=== PATIENT | female | born 1945 | race Caucasian/White ===

== ENCOUNTER → 2021-11-09 15:01 | Outpatient (CLI) | payer MEDICARE, SELFPAY ==
--- NOTE | 2021-11-09 15:09 | DI.RAD.S_ITS ---
PROCEDURE: XR ANKLE LT MIN 3V INDICATIONS: Pain in left ankle and joints of left foot TECHNIQUE: 3 views of the ankle were acquired. COMPARISON: None. FINDINGS: Bones: Acute oblique fracture through distal fibular shaft is seen with minimal dorsal and lateral displacement at fracture site. Ankle mortise is congruent. No dislocation. No other fracture is seen. Well-defined plantar calcaneal enthesophyte is noted. No suspicious bony lesions. Soft tissues: No tibiotalar joint effusion. Achilles tendon appears normal. IMPRESSION: Acute slightly displaced oblique fracture through distal fibular shaft. Dictated by: Emeterio Lane M.D. on 11/09/2021 at 15:44 Approved by: Emeterio Lane M.D. on 11/09/2021 at 15:49
== END ==
PROVIDERS: PCP Family Medicine; Referring Provider Family Medicine; Visit Provider Family Medicine
DX: S82.435A Nondisplaced oblique fracture of shaft of left fibula, initial encounter for closed fracture (principal); M25.572 Pain in left ankle and joints of left foot; X58.XXXA Exposure to other specified factors, initial encounter
CPT/HCPCS: 73610

== ENCOUNTER 2025-01-26 11:10 | Emergency (ER) | payer MEDICARE, SELFPAY ==
[2025-01-26] VITALS (15 sets, daily range): BP systolic 122–142; BP diastolic 66–77; PULSE 94–104; RESP 22–29; O2SAT 92–97
--- NOTE | 2025-01-26 11:16 | DI.CT.S_ITS ---
PROCEDURE: CT STROKE INDICATIONS: Positive BE-FAST, Stroke symptoms TECHNIQUE: Noncontrast 4.5 mm thick angled axial sections acquired from the foramen magnum to the vertex, with coronal reformats. For radiation dose reduction, the following was used: automated exposure control, adjustment of mA and/or kV according to patient size. COMPARISON: None. FINDINGS: Image quality: Diagnostic. Brain: There is large intraparenchymal hematoma involving right cerebral hemisphere with extensive surrounding vasogenic edema. There is mass effect on right lateral ventricle with near complete effacement of right lateral ventricle and up to 1.1 cm midline shift to the left. 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 There is cerebral volume loss, with resultant ventricular and sulcal prominence. There are periventricular and deep white matter chronic small vessel ischemic changes. There is intracranial internal carotid artery atherosclerosis. Skull and face: Calvarium and visualized facial bones appear intact, without suspicious lesions. Sinuses: Visualized sinuses and mastoids are clear. IMPRESSION: 1. Acute large right cerebral hemorrhage with significant surrounding vasogenic edema, effacement of right lateral ventricle and up to 1.1 cm midline shift to the left. Findings were reported to ordering ER clinician at the time of dictation. This study fulfills neurological imaging criteria for inclusion or exclusion of acute stroke therapies based on available published neurological guidelines. Dictated by: Emeterio Lane M.D. on 01/26/2025 at 11:24 Approved by: Emeterio Lane M.D. on 01/26/2025 at 11:28
--- NOTE | 2025-01-26 11:16 | DI.CT.S_ITS ---
PROCEDURE: CT ANGIO HEAD AND NECK INDICATIONS: r/o stroke, L droop, L flaccid TECHNIQUE: After the administration of intravenous contrast, 1 mm thick sections acquired from the aortic arch through the [place] of [place]. 3-dimensional sxhsfpx-blqoyrydf-vtkdcogoei (MIP) and/or volume rendering reformats were acquired of the central intracranial vasculature and neck separately. For radiation dose reduction, the following was used: automated exposure control, adjustment of mA and/or kV according to patient size. COMPARISON: [facility], CT, CT STROKE, 01/26/2025, 11:14. FINDINGS: Image quality: Diagnostic. Cerebral CT Angiogram: Internal carotid arteries: No acute findings. Intracranial ICA are patent with no significant stenosis. No occlusion. No aneurysm. Anterior cerebral arteries: Unremarkable. No significant stenosis. No occlusion. No aneurysm. Middle cerebral arteries: Unremarkable. No significant stenosis. No occlusion. No aneurysm. Posterior cerebral arteries: Unremarkable. No significant stenosis. No occlusion. No aneurysm. Basilar artery: Unremarkable. No significant stenosis. No occlusion. No aneurysm. Vertebral arteries: Unremarkable as visualized. Dural venous sinuses: Unremarkable given phase of enhancement. Other: Large right cerebral intraparenchymal hematoma is again seen unchanged from earlier CT study. Neck CT Angiogram: Internal carotid arteries: Unremarkable. No significant stenosis. No dissection or occlusion. Common carotid arteries: Unremarkable. No significant stenosis. No dissection or occlusion. External carotid arteries: Unremarkable. No occlusion. Vertebral arteries: Unremarkable. No significant stenosis. No dissection or occlusion. Aortic Arch and Mediastinum: Partially visualized aortic arch unremarkable without evidence of aneurysm. Origins of the great vessels unremarkable. Other: Arterial phase soft tissues of the neck and chest are unremarkable. IMPRESSION: 1. No significant intracranial arterial abnormality is seen. 2. No significant abnormality is seen within the arteries of the neck. 3. Stable appearance of large acute right cerebral intraparenchymal hematoma with surrounding vasogenic edema. Any quantitative measurements of stenosis were performed using NASCET criteria. Dictated by: Emeterio Lane M.D. on 01/26/2025 at 11:43 Approved by: Emeterio Lane M.D. on 01/26/2025 at 11:45
--- OUTSIDE RECORDS SUMMARY | 2025-01-26 11:17 | XMS_ITS | Data Portability ---
Author Organization [facility], HOUSE CALL Address [address] [place] [address] Assessment No assessment recorded. Plan of Treatment Reminders Order Date Submit Date Provider Last Modified By Organization Details Last Modified Time Details Appointments None recorded. Lab TSH + free T4, serum 2024 025 [facility], [address] [place] [address], [address], 5 17:43:24 iron + TIBC + ferritin, serum 2024 025 [facility], [address] [place] [address], [address], 5 17:43:25 testosteron e, free + total, serum 2024 025 [facility], [address] [place] [address], [address], 5 17:43:24 estradiol, serum 2024 025 [facility], [address] [place] [address], [address], 5 17:43:23 progesteron e, serum [address], [address], 5 17:43:25 CBC w/ auto diff 2024 025 [facility], [address] [place] [address], [address], 5 04:04:04 CMP, serum or plasma 2024 025 [facility], [address] [place] [address], [address], 5 04:04:04 lipid panel, serum 2024 025 [facility], [address] [place] [address], [address], 5 04:04:04 vitamin B12 + folate, serum or blood 2023 024 [facility], [address] [place] [address], [address], 4 11:11:09 TSH + free T4, serum 2023 024 [facility], [address] [place] [address], [address], 4 11:11:07 CBC w/ auto diff 2023 024 [facility], [address] [place] [address], [address], 4 11:11:08 CMP, serum or plasma 2023 024 [facility], [address] [place] [address], [address], 4 11:11:08 lipid panel, serum 2023 024 [facility], [address] [place] [address], [address], 4 11:11:09 lipid panel, serum 2022 023 [facility], [address] [place] [address], [address], 3 07:09:04 CMP, serum or plasma 2022 023 [facility], [address], [place], [address], 3 07:09:04 Referral gastroenter ologist referral 2024 025 [facility], [address], [place], [address], 5 04:13:03 physical therapist referral 2022 023 [facility], [address], [place], [address], 3 01:52:43 cardiologis t referral 2022 023 [facility], [address], [address], [place], [address], 3 05:00:56 Procedures None recorded. Surgeries None recorded. Imaging XR, knee, 3 view 2023 024 [facility], [address] [place], [address], 4 11:52:43 XR, lumbosacral spine, 2 or 3 view 2023 024 [facility], [address] [place], [address], 4 13:02:13 Medication Orders clonazepam 0.5 mg tablet 2021 022 [id number], [address], [id number], 2 15:01:41 Patient TargetsNo targets recorded. Patient Instructions Encounter Date Encounter Id Patient Instructions Last Modified By Organization Details Last Modified Time 06/20/2023 [id number] low back pain: exercises [id number] Not available 06/20/2023 12:32:14 07/23/2024 [id number] 1. OK to try cutting back to half dose pravastatin. We will recheck lipids with next blood draw. 2. OK to try cutting fluoxetine to 1 pill daily. If anxiety gets worse, return to usual dosing. 3. Come back for labs. 4. Call the GI specialists if they do not call you in the next week. Double check their address. 5. Get blood pressure checked when you come in for blood draw and check it at home. giulia Not available 07/23/2024 17:34:53 Reason for Referral Physical Therapist Referral for Fracture of ankle Referring Physician: Isaac Silva [facility], Encounter Date: 04/08/2022 Archival Studies Professor Referral for Co ronary arteriosclerosis Referring Physician: Isaac Silva [facility], Encounter Date: 04/08/2022 Pharmaceutical Compounding Supervisor Referral for Swallowing painful Referring Physician: Isaac Silva [facility], Encounter Date: 07/23/2024 Results Created Date Observation Date Name Description Value Unit Range Abnormal Flag Note LastModifiedBy Organization Detail LastModifiedTime 05/09/19 22 05/09/2021 CBC WITH DIFFE RENTI AL/PL ATELE T WBC 5.6 x10e3 /uL 3.4-10 .8 Not Available [facility] ([facility]) [address] [facility], [place], [address], 05/10/2021 10:07:10 05/09/19 22 05/09/2021 CBC WITH DIFFE RENTI AL/PL ATELE T RBC 4.57 x10e6 /uL 3.77-5 .28 Not Available [facility] ([facility]) [address] [facility], [place], [address], 05/10/2021 10:07:10 05/09/19 22 05/09/2021 CBC WITH DIFFE RENTI AL/PL ATELE T hemoglobin 14.1 g/dL 11.1-1 5.9 Not Available [facility] ([facility]) [address] [facility], [place], [address], 05/10/2021 10:07:10 05/09/19 22 05/09/2021 CBC WITH DIFFE RENTI AL/PL ATELE T hematocrit 42.2 % 34.0-4 6.6 Not Available [facility] ([facility]) [address], [place], [address], 05/10/2021 10:07:10 05/09/19 22 05/09/2021 CBC WITH DIFFE RENTI AL/PL ATELE T MCV 92 fL 79-97 Not Available [facility] ([facility]) [address], [place], [address], 05/10/2021 10:07:10 05/09/19 22 05/09/2021 CBC WITH DIFFE RENTI AL/PL ATELE T MCH 30.9 pg 26.6-3 3.0 Not Available [facility] ([facility]) [address], [place], [address], 05/10/2021 10:07:10 05/09/19 22 05/09/2021 CBC WITH DIFFE RENTI AL/PL ATELE T MCHC 33.4 g/dL 31.5-3 5.7 Not Available [facility] ([facility]) [address], [place], [address], 05/10/2021 10:07:10 05/09/19 22 05/09/2021 CBC WITH DIFFE RENTI AL/PL ATELE T RDW 12.7 % 11.7-1 5.4 Not Available [facility] ([facility]) [address], [place], [address], 05/10/2021 10:07:10 05/09/19 22 05/09/2021 CBC WITH DIFFE RENTI AL/PL ATELE T platelets 173 x10e3 /uL 150-45 0 Not Available [facility] ([facility]) [address] [facility], [place], [address], 05/10/2021 10:07:10 05/09/19 22 05/09/2021 CBC WITH DIFFE RENTI AL/PL ATELE T neutrophils 68 % not estab. Not Available [facility] ([facility]) [address] [facility], [place], [address], 05/10/2021 10:07:10 05/09/19 22 05/09/2021 CBC WITH DIFFE RENTI AL/PL ATELE T lymphs 18 % not estab. Not Available [facility] ([facility]) [address], [place], [address], 05/10/2021 10:07:10 05/09/19 22 05/09/2021 CBC WITH DIFFE RENTI AL/PL ATELE T monocytes 8 % not estab. Not Available [facility] ([facility]) [address] [facility], [place], [address], 05/10/2021 10:07:10 05/09/19 22 05/09/2021 CBC WITH DIFFE RENTI AL/PL ATELE T eos 4 % not estab. Not Available [facility] ([facility]) [address] [facility], [place], [address], 05/10/2021 10:07:10 05/09/19 22 05/09/2021 CBC WITH DIFFE RENTI AL/PL ATELE T basos 1 % not estab. Not Available [facility] ([facility]) [address] [place], [address], 05/10/2021 10:07:10 05/09/19 22 05/09/2021 CBC WITH DIFFE RENTI AL/PL ATELE T immature cells SUPERVISING DEPUTY Not Available [facility] ([facility]) [address] [facility], [place], [address], 05/10/2021 10:07:10 05/09/19 22 05/09/2021 CBC WITH DIFFE RENTI AL/PL ATELE T neutrophils (absolute) 3.8 x10e3 /uL 1.4-7. 0 Not Available [facility] ([facility]) [address] [place], [address], 05/10/2021 10:07:10 05/09/19 22 05/09/2021 CBC WITH DIFFE RENTI AL/PL ATELE T lymphs (absolute) 1.0 x10e3 /uL 0.7-3. 1 Not Available [facility] ([facility]) [address] [facility], [place], [address], 05/10/2021 10:07:10 05/09/19 22 05/09/2021 CBC WITH DIFFE RENTI AL/PL ATELE T monocytes(ab solute) 0.5 x10e3 /uL 0.1-0. 9 Not Available [facility] ([facility]) [address] [facility], [place], [address], 05/10/2021 10:07:10 05/09/19 22 05/09/2021 CBC WITH DIFFE RENTI AL/PL ATELE T eos (absolute) 0.2 x10e3 /uL 0.0-0. 4 Not Available [facility] ([facility]) [address] [facility], [place], [address], 05/10/2021 10:07:10 05/09/19 22 05/09/2021 CBC WITH DIFFE RENTI AL/PL ATELE T baso (absolute) 0.1 x10e3 /uL 0.0-0. 2 Not Available [facility] ([facility]) [address] [facility], [place], [address], 05/10/2021 10:07:10 05/09/19 22 05/09/2021 CBC WITH DIFFE RENTI AL/PL ATELE T immature granulocytes 1 % not estab. Not Available [facility] ([facility]) [address] [facility], [place], [address], 05/10/2021 10:07:10 05/09/19 22 05/09/2021 CBC WITH DIFFE RENTI AL/PL ATELE T immature grans (abs) 0.0 x10e3 /uL 0.0-0. 1 Not Available [facility] ([facility]) [address] [facility], [place], [address], 05/10/2021 10:07:10 05/09/19 22 05/09/2021 CBC WITH DIFFE RENTI AL/PL ATELE T NRBC SUPERVISING DEPUTY Not Available [facility] ([facility]) [address] [facility], [place], [address], 05/10/2021 10:07:10 05/09/19 22 05/09/2021 CBC WITH DIFFE RENTI AL/PL ATELE T hematology comments: SUPERVISING DEPUTY Not Available [facility] ([facility]) [address], [place], [address], 05/10/2021 10:07:10 05/09/19 22 05/10/2021 COMP. METAB OLIC PANEL (14) glucose 93 mg/dL 65-99 Not Available [facility] ([facility]) [address] [facility], [place], [address], 05/10/2021 10:07:11 05/09/19 22 05/10/2021 COMP. METAB OLIC PANEL (14) BUN 9 mg/dL 8-27 Not Available [facility] ([facility]) [address] [facility], [place], [address], 05/10/2021 10:07:11 05/09/19 22 05/10/2021 COMP. METAB OLIC PANEL (14) creatinine 0.71 mg/dL 0.57-1 .00 Not Available [facility] ([facility]) [address] [facility], [place], [address], 05/10/2021 10:07:11 05/09/19 22 05/10/2021 COMP. METAB OLIC PANEL (14) BUN/creatini ne ratio 13 12-28 Not Available [facility] ([facility]) [address] [facility], [place], [address], 05/10/2021 10:07:11 05/09/19 22 05/10/2021 COMP. METAB OLIC PANEL (14) sodium 132 mmol/ L 134-14 4 below low normal Not Available [facility] ([facility]) [address] [place], [address], 05/10/2021 10:07:11 05/09/19 22 05/10/2021 COMP. METAB OLIC PANEL (14) potassium 4.5 mmol/ L 3.5-5. 2 Not Available [facility] ([facility]) [address] [place], [address], 05/10/2021 10:07:11 05/09/19 22 05/10/2021 COMP. METAB OLIC PANEL (14) chloride 96 mmol/ L 96-106 Not Available [facility] ([facility]) [address] [facility], [place], [address], 05/10/2021 10:07:11 05/09/19 22 05/10/2021 COMP. METAB OLIC PANEL (14) carbon dioxide, total 22 mmol/ L 20-29 Not Available [facility] ([facility]) [address] [place], [address], 05/10/2021 10:07:11 05/09/19 22 05/10/2021 COMP. METAB OLIC PANEL (14) calcium 9.5 mg/dL 8.7-10 .3 Not Available [facility] ([facility]) [address] [place], [address], 05/10/2021 10:07:11 05/09/19 22 05/10/2021 COMP. METAB OLIC PANEL (14) protein, total 6.3 g/dL 6.0-8. 5 Not Available [facility] ([facility]) [address] [place], [address], 05/10/2021 10:07:11 05/09/19 22 05/10/2021 COMP. METAB OLIC PANEL (14) albumin 4.1 g/dL 3.7-4. 7 Not Available [facility] ([facility]) [address] [place], [address], 05/10/2021 10:07:11 05/09/19 22 05/10/2021 COMP. METAB OLIC PANEL (14) globulin, total 2.2 g/dL 1.5-4. 5 Not Available [facility] ([facility]) [address] [place], [address], 05/10/2021 10:07:11 05/09/19 22 05/10/2021 COMP. METAB OLIC PANEL (14) A/G ratio 1.9 1.2-2. 2 Not Available [facility] ([facility]) [address], [place], [address], 05/10/2021 10:07:11 05/09/19 22 05/10/2021 COMP. METAB OLIC PANEL (14) bilirubin, total 0.4 mg/dL 0.0-1. 2 Not Available [facility] ([facility]) [address] [place], [address], 05/10/2021 10:07:11 05/09/19 22 05/10/2021 COMP. METAB OLIC PANEL (14) alkaline phosphatase 75 IU/L 44-121 Not Available [facility]) [address] [facility], [place], [address], 05/10/2021 10:07:11 05/09/19 22 05/10/2021 COMP. METAB OLIC PANEL (14) AST (SGOT) 16 IU/L 0-40 Not Available [facility] ([facility]) [address] [facility], [place], [address], 05/10/2021 10:07:11 05/09/19 22 05/10/2021 COMP. METAB OLIC PANEL (14) ALT (SGPT) 11 IU/L 0-32 Not Available [facility] ([facility]) [address], [place], [address], 05/10/2021 10:07:11 05/09/19 22 05/10/2021 LIPID PANEL WITH LDL/H DL RATIO cholesterol, total 198 mg/dL 100-19 9 Not Available [facility] ([facility]) [address] [facility], [place], [address], 05/10/2021 10:07:11 05/09/19 22 05/10/2021 LIPID PANEL WITH LDL/H DL RATIO triglyceride s 94 mg/dL 0-149 Not Available [facility] ([facility]) [address] [facility], [place], [address], 05/10/2021 10:07:11 05/09/19 22 05/10/2021 LIPID PANEL WITH LDL/H DL RATIO HDL cholesterol 70 mg/dL >39 Not Available [facility]) [address] [facility], [place], [address], 05/10/2021 10:07:11 05/09/19 22 05/10/2021 LIPID PANEL WITH LDL/H DL RATIO VLDL cholesterol latasha 17 mg/dL 5-40 Not Available [facility]) [address] [facility], [place], [address], 05/10/2021 10:07:11 05/09/19 22 05/10/2021 LIPID PANEL WITH LDL/H DL RATIO LDL chol calc ([facility]) 111 mg/dL 0-99 above high normal Not Available [facility] ([facility]) [address] [facility], [place], [address], 05/10/2021 10:07:11 05/09/19 22 05/10/2021 LIPID PANEL WITH LDL/H DL RATIO comment: SUPERVISING DEPUTY Not Available [facility] ([facility]) [address] [facility], [place], [address], 05/10/2021 10:07:11 05/09/19 22 05/10/2021 LIPID PANEL WITH LDL/H DL RATIO LDL/HDL ratio 1.6 ratio 0.0-3. 2 LDL/H DL Ratio Men Women 1/2 Avg.R isk 1.0 1.5 Avg.R isk 3.6 3.2 2X Avg.R isk 6.2 5.0 3X Avg.R isk 8.0 6.1 Not Available [facility] ([facility]) [address] [place], [address], 05/10/2021 10:07:11 05/09/19 22 05/10/2021 TSH RFX ON ABNOR MAL TO FREE T4 TSH 1.830 uIU/m L 0.450- 4.500 Not Available [facility] ([facility]) [address] [place], [address], 05/10/2021 10:07:11 06/20/19 24 06/22/2023 TSH+F REE T4 TSH 1.670 uIU/m L 0.450- 4.500 Not Available [facility] ([facility]) [address] [place], [address], 06/22/2023 11:11:07 06/20/19 24 06/22/2023 TSH+F REE T4 T4,free(dire ct) 1.09 NG/dL 0.82-1 .77 Not Available [facility] ([facility]) [address] [place], [address], 06/22/2023 11:11:07 06/20/19 24 06/22/2023 CBC WITH DIFFE RENTI AL/PL ATELE T WBC 5.3 x10e3 /uL 3.4-10 .8 Not Available [facility] ([facility]) [address] [place], [address], 06/22/2023 11:11:08 06/20/19 24 06/22/2023 CBC WITH DIFFE RENTI AL/PL ATELE T RBC 4.45 x10e6 /uL 3.77-5 .28 Not Available [facility] ([facility]) [address] [facility], [place], [address], 06/22/2023 11:11:08 06/20/19 24 06/22/2023 CBC WITH DIFFE RENTI AL/PL ATELE T hemoglobin 13.4 g/dL 11.1-1 5.9 Not Available [facility] ([facility]) [address] [facility], [place], [address], 06/22/2023 11:11:08 06/20/19 24 06/22/2023 CBC WITH DIFFE RENTI AL/PL ATELE T hematocrit 40.4 % 34.0-4 6.6 Not Available [facility] ([facility]) [address] [facility], [place], [address], 06/22/2023 11:11:08 06/20/19 24 06/22/2023 CBC WITH DIFFE RENTI AL/PL ATELE T MCV 91 fL 79-97 Not Available [facility] ([facility]) [address] [facility], [place], [address], 06/22/2023 11:11:08 06/20/19 24 06/22/2023 CBC WITH DIFFE RENTI AL/PL ATELE T MCH 30.1 pg 26.6-3 3.0 Not Available [facility] ([facility]) [address] [facility], [place], [address], 06/22/2023 11:11:08 06/20/19 24 06/22/2023 CBC WITH DIFFE RENTI AL/PL ATELE T MCHC 33.2 g/dL 31.5-3 5.7 Not Available [facility] ([facility]) [address] [facility], [place], [address], 06/22/2023 11:11:08 06/20/19 24 06/22/2023 CBC WITH DIFFE RENTI AL/PL ATELE T RDW 12.7 % 11.7-1 5.4 Not Available [facility] ([facility]) [address] [facility], [place], [address], 06/22/2023 11:11:08 06/20/19 24 06/22/2023 CBC WITH DIFFE RENTI AL/PL ATELE T platelets 185 x10e3 /uL 150-45 0 Not Available [facility] ([facility]) [address] [facility], [place], [address], 06/22/2023 11:11:08 06/20/19 24 06/22/2023 CBC WITH DIFFE RENTI AL/PL ATELE T neutrophils 58 % not estab. Not Available [facility] ([facility]) [address] [facility], [place], [address], 06/22/2023 11:11:08 06/20/19 24 06/22/2023 CBC WITH DIFFE RENTI AL/PL ATELE T lymphs 21 % not estab. Not Available [facility] ([facility]) [address] [facility], [place], [address], 06/22/2023 11:11:08 06/20/19 24 06/22/2023 CBC WITH DIFFE RENTI AL/PL ATELE T monocytes 10 % not estab. Not Available [facility] ([facility]) [address] [facility], [place], [address], 06/22/2023 11:11:08 06/20/19 24 06/22/2023 CBC WITH DIFFE RENTI AL/PL ATELE T eos 8 % not estab. Not Available [facility] ([facility]) [address] [facility], [place], [address], 06/22/2023 11:11:08 06/20/19 24 06/22/2023 CBC WITH DIFFE RENTI AL/PL ATELE T basos 2 % not estab. Not Available [facility] ([facility]) [address] [facility], [place], [address], 06/22/2023 11:11:08 06/20/19 24 06/22/2023 CBC WITH DIFFE RENTI AL/PL ATELE T immature cells SUPERVISING DEPUTY Not Available [facility] ([facility]) [address] [place], [address], 06/22/2023 11:11:08 06/20/19 24 06/22/2023 CBC WITH DIFFE RENTI AL/PL ATELE T neutrophils (absolute) 3.1 x10e3 /uL 1.4-7. 0 Not Available [facility] ([facility]) [address] [place], [address], 06/22/2023 11:11:08 06/20/19 24 06/22/2023 CBC WITH DIFFE RENTI AL/PL ATELE T lymphs (absolute) 1.1 x10e3 /uL 0.7-3. 1 Not Available [facility] ([facility]) [address] [place], [address], 06/22/2023 11:11:08 06/20/19 24 06/22/2023 CBC WITH DIFFE RENTI AL/PL ATELE T monocytes(ab solute) 0.5 x10e3 /uL 0.1-0. 9 Not Available [facility] ([facility]) [address] [place], [address], 06/22/2023 11:11:08 06/20/19 24 06/22/2023 CBC WITH DIFFE RENTI AL/PL ATELE T eos (absolute) 0.4 x10e3 /uL 0.0-0. 4 Not Available [facility] ([facility]) [address] [place], [address], 06/22/2023 11:11:08 06/20/19 24 06/22/2023 CBC WITH DIFFE RENTI AL/PL ATELE T baso (absolute) 0.1 x10e3 /uL 0.0-0. 2 Not Available [facility] ([facility]) [address] [facility], [place], [address], 06/22/2023 11:11:08 06/20/19 24 06/22/2023 CBC WITH DIFFE RENTI AL/PL ATELE T immature granulocytes 1 % not estab. Not Available [facility] ([facility]) [address] [facility], [place], [address], 06/22/2023 11:11:08 06/20/19 24 06/22/2023 CBC WITH DIFFE RENTI AL/PL ATELE T immature grans (abs) 0.1 x10e3 /uL 0.0-0. 1 Not Available [facility] ([facility]) [address] [facility], [place], [address], 06/22/2023 11:11:08 06/20/19 24 06/22/2023 CBC WITH DIFFE RENTI AL/PL ATELE T NRBC SUPERVISING DEPUTY Not Available [facility] ([facility]) [address] [facility], [place], [address], 06/22/2023 11:11:08 06/20/19 24 06/22/2023 CBC WITH DIFFE RENTI AL/PL ATELE T hematology comments: SUPERVISING DEPUTY Not Available [facility]) [address] [facility], [place], [address], 06/22/2023 11:11:08 06/20/19 24 06/22/2023 COMP. METAB OLIC PANEL (14) glucose 115 mg/dL 70-99 above high normal Not Available [facility] ([facility]) [address] [facility], [place], [address], 06/22/2023 11:11:08 06/20/19 24 06/22/2023 COMP. METAB OLIC PANEL (14) hemoglobin A1C 5.5 % 4.8-5. 6 Predi abete s: 5.7 - 6.4 Diabe malina: >6.4 Glyce lucie contr ol for adult s with diabe malina: <7.0 Not Available [facility] ([facility]) [address] [place], [address], 06/22/2023 11:11:08 06/20/19 24 06/22/2023 COMP. METAB OLIC PANEL (14) BUN 6 mg/dL 8-27 below low normal Not Available [facility] ([facility]) [address] [place], [address], 06/22/2023 11:11:08 06/20/19 24 06/22/2023 COMP. METAB OLIC PANEL (14) creatinine 0.68 mg/dL 0.57-1 .00 Not Available [facility] ([facility]) [address] [place], [address], 06/22/2023 11:11:08 06/20/19 24 06/22/2023 COMP. METAB OLIC PANEL (14) BUN/creatini ne ratio 9 12-28 below low normal Not Available [facility] ([facility]) [address] [place], [address], 06/22/2023 11:11:08 06/20/19 24 06/22/2023 COMP. METAB OLIC PANEL (14) sodium 133 mmol/ L 134-14 4 below low normal Not Available [facility] ([facility]) [address] [place], [address], 06/22/2023 11:11:08 06/20/19 24 06/22/2023 COMP. METAB OLIC PANEL (14) potassium 4.4 mmol/ L 3.5-5. 2 Not Available [facility] ([facility]) [address] [place], [address], 06/22/2023 11:11:08 06/20/19 24 06/22/2023 COMP. METAB OLIC PANEL (14) chloride 97 mmol/ L 96-106 Not Available [facility] ([facility]) [address] [place], [address], 06/22/2023 11:11:08 06/20/19 24 06/22/2023 COMP. METAB OLIC PANEL (14) carbon dioxide, total 24 mmol/ L Not Available [facility] ([facility]) [address], [place], [address], 06/22/2023 11:11:08 06/20/19 24 06/22/2023 COMP. METAB OLIC PANEL (14) calcium 9.2 mg/dL 8.7-10 .3 Not Available [facility] ([facility]) [address] [place], [address], 06/22/2023 11:11:08 06/20/19 24 06/22/2023 COMP. METAB OLIC PANEL (14) protein, total 6.0 g/dL 6.0-8. 5 Not Available [facility] ([facility]) [address], [place], [address], 06/22/2023 11:11:08 06/20/19 24 06/22/2023 COMP. METAB OLIC PANEL (14) albumin 3.9 g/dL 3.8-4. 8 Not Available [facility] ([facility]) [address], [place], [address], 06/22/2023 11:11:08 06/20/19 24 06/22/2023 COMP. METAB OLIC PANEL (14) globulin, total 2.1 g/dL 1.5-4. 5 Not Available [facility] ([facility]) [address] [place], [address], 06/22/2023 11:11:08 06/20/19 24 06/22/2023 COMP. METAB OLIC PANEL (14) A/G ratio 1.9 1.2-2. 2 Not Available [facility] ([facility]) [address] [place], [address], 06/22/2023 11:11:08 06/20/19 24 06/22/2023 COMP. METAB OLIC PANEL (14) bilirubin, total 0.4 mg/dL 0.0-1. 2 Not Available [facility] ([facility]) [address] [place], [address], 06/22/2023 11:11:08 06/20/19 24 06/22/2023 COMP. METAB OLIC PANEL (14) alkaline phosphatase 86 IU/L 44-121 Not Available [facility] ([facility]) [address] [place], [address], 06/22/2023 11:11:08 06/20/19 24 06/22/2023 COMP. METAB OLIC PANEL (14) AST (SGOT) 17 IU/L 0-40 Not Available [facility] ([facility]) [address] [place], [address], 06/22/2023 11:11:08 06/20/19 24 06/22/2023 COMP. METAB OLIC PANEL (14) ALT (SGPT) 12 IU/L 0-32 Not Available [facility] ([facility]) [address] [place], [address], 06/22/2023 11:11:08 06/20/19 24 06/22/2023 LIPID PANEL cholesterol, total 180 mg/dL 100-19 9 Not Available [facility] ([facility]) [address] [place], [address], 06/22/2023 11:11:09 06/20/19 24 06/22/2023 LIPID PANEL triglyceride s 74 mg/dL 0-149 Not Available [facility] ([facility]) [address] [place], [address], 06/22/2023 11:11:09 06/20/19 24 06/22/2023 LIPID PANEL HDL cholesterol 75 mg/dL >39 Not Available [facility] ([facility]) [address] [place], [address], 06/22/2023 11:11:09 06/20/19 24 06/22/2023 LIPID PANEL VLDL cholesterol latasha 14 mg/dL 5-40 Not Available [facility] ([facility]) [address] [place], [address], 06/22/2023 11:11:09 06/20/19 24 06/22/2023 LIPID PANEL LDL chol calc ([facility]) 91 mg/dL 0-99 Not Available [facility] ([facility]) [address] [place], [address], 06/22/2023 11:11:09 06/20/19 24 06/22/2023 LIPID PANEL comment: SUPERVISING DEPUTY Not Available [facility] ([facility]) [address], [place], [address], 06/22/2023 11:11:09 06/20/19 24 06/22/2023 VITAM IN B12 AND FOLAT E vitamin B12 1051 pg/mL 232-12 45 Not Available [facility] ([facility]) [address], [place], [address], 06/22/2023 11:11:09 06/20/19 24 06/22/2023 VITAM IN B12 AND FOLAT E folate (folic acid), serum >20.0 NG/mL >3.0 A serum folat e seb ntrat ion of less than 3.1 ng/mL is consi dered to repre sent clini latasha defic iency . Not Available [facility] ([facility]) [address], [place], [address], 06/22/2023 11:11:09 11/10/19 22 11/09/2021 XR, ankle , 3 or more view No observ ation record ed. [address] [facility] [address] [place], [address], 11/09/2021 21:04:53 11/03/1910/21/2022 MAMMO , scree kika, digit al, bilat eral No observ ation record ed. [email or web address] [facility] [address], [place], [address], 12/17/2022 17:23:47 06/29/19 24 06/24/2023 XR, knee, 3 view No observ ation record ed. [address] [place], [address], 07/04/2023 14:52:59 06/29/19 24 06/24/2023 XR, lumbo sacra l spine , 2 or 3 view No observ ation record ed. [address] [place], [address], 07/04/2023 14:52:59 Result Notes None recorded. Problems Name Problem SNOMED Code Status Onset Date Resolution Date Notes Provider Name and Address Organization Details Recorded Time Coronary arterioscle rosis 96282412 Active Isaac Silva MD [address] [place] [address], [address], [facility] 17:25:13 Depressive disorder 17210364 Active Isaac Silva MD [address] [place], [address], [facility] 17:25:38 History of thrombocyto penia 2415888730051 8 Active Isaac Silva MD [address] [place], [address], [facility] 17:25:53 Problem Notes None recorded. Procedures Surgical History Date Name Laterality Status Provider Name and Address Organization Details Recorded Time Tonsillectomy completed Isaac Silva MD [address] [place], [address], [facility] 09/30/2020 17:30:30 Tubal Ligation completed Isaac Silva MD [address] [place], [address], [facility] 09/30/2020 17:30:39 Imaging Results None recorded. Procedure Notes None recorded. Medical Equipment None Reported. Allergies No known drug allergies Medications Name Sig Start Date Stop Date Status Note LastModified by Organization Details LastModified Time fluoxetine 40 mg capsule TAKE 2 CAPSULES BY MOUTH EVERY DAY 2024 active Not Available Not Available Not Avai lable ofloxacin 0.3 % eye drops 09/30 completed Not Available Not Available Not Available clonazepam 0.5 mg tablet TAKE 1 TABLET BY MOUTH FOUR TIMES DAILY NEEDED active Not Available Not Available No t Available pravastatin 80 mg tablet TAKE 1 TABLET BY MOUTH EVERY DAY 2024 active Not Available Not Available Not Avai lable prednisolon e acetate 1 % eye drops,suspe nsion 09/30 completed Not Available Not Available Not Available desonide 0.05 % topical ointment MARILIN AA BID ON CHEST 09/30 completed Not Available Not Available Not Available diltiazem CD 120 mg capsule,ext ended release 24 hr TAKE 1 CAPSULE BY MOUTH EVERY DAY 2024 active Not Available Not Available Not Avai lable metoprolol succinate ER 25 mg tablet,exte nded release 24 hr TAKE 1 TABLET BY MOUTH EVERY DAY 2024 active Not Available Not Available Not Avai lable Vitals Date Recorded Body height Body mass index (BMI) Body weight Provider Name and Address Organization Details Last Updated DateTime 04/08/2022 167.64 cm 31.3 kg/m2 59617.92 g Isaac Silva MD [address] [place], [address] 04/08/2022 19:13:06 Date Recorded Body height Body mass index (BMI) Body weight Provider Name and Address Organization Details Last Updated DateTime 05/08/2021 167.64 cm 31.3 kg/m2 65959.92 g Isaac Silva MD [address] [place], [address] 05/08/2021 14:42:48 Date Recorded Body height Body mass index (BMI) Body weight Provider Name and Address Organization Details Last Updated DateTime 06/20/2023 167.64 cm 30.7 kg/m2 81074.55 g Isaac Silva MD [address] [place], [address] 06/20/2023 12:11:39 Date Recorded Body height Heart rate Oxygen saturation Body mass index (BMI) Body weight Systolic And Diastolic Provider Name and Address Organization Details Last Updated DateTime 167.64 cm 63 /min 97 % 30 kg/m2 88570.1 8 g 130/70 mm[Hg] Isaac Silva MD [address] [place], [address] [place] [address] 17:34:07 Social History Question Answer Notes LastModified by [employer] Details LastModified Time Tobacco Smoking Status Former Smoker was heavy smoker Isaac Silva MD [address] [place], [address] 09/30/2020 17:27:56 Do You Have An Advance Directive? No Information not available 06/20/2023 What Is The Highest Grade Or Level Of School You Have Completed Or The Highest Degree You Have Received? [id number] Business Information not available 09/30/2020 When Did You Quit Smoking? 11-15yearss [email or web address] [email or web address] Information not available 09/30/2020 Do You Have A Medical Power Of Motion Picture Critic? No [email or web address] Information not available 06/20/2023 What Was The Date Of Your Most Recent Tobacco Screening? 07/23/2024 [email or web address] Information not available 07/23/2024 How Many Children Do You Have? 4 [email or web address] Information not available 09/30/2020 What Is Your Relationship Status? Information not available 09/30/2020 Has Tobacco Cessation Counseling Been Provided? No Information not available 04/08/2022 Sex: Unknown Functional Status Question Answer Note LastModified by [employer] Details LastModified Time Do you use any illicit or recreational drugs? No [email or web address] Information not available 09/30/2020 Do you or have you ever used any other forms of tobacco or nicotine? No [email or web address] Information not available 04/08/2022 What is your level of alcohol consumption? Moderate [email or web address] Information not available 09/30/2020 Are you currently employed? 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 Family History Relationship Description Onset Age of this Age Resolved Age Notes LastModified by Organization Details LastModified Time Maternal Grandfather Myocardial infarction [email or web address] Not available 09/08 17:26:51 Medical History Condition Response Depression Y Heart Disease Y Gynecological HistoryNo gynecological history recorded. Obstetrics History GPAL:G 0 P 0 0 0 0 Past Encounters Encounter ID Performer Location Encounter Start Date Encounter Closed Date Diagnosis/Indication Diagnosis SNOMED-CT Code Diagnosis ICD10 Code Diagnosis IMO Codes Diagnosis Note [id number] Isaac Silva MD Main Office [address] [place] [address] 09/30/2020 17:00:40 09/30/2020 19:17:44 Screening for malignant neoplasm of respiratory tract 900681846 Z12.2 due for lung cancer screening due to smoking history Depressive disorder 3548 9007 F32.9 chronic, stable overall on meds Coronary arteriosclerosis 40454111 I25.10 no sxs, continue current meds, due for labs Thrombocyt openic disorder 253965509 D69.6 h/o low plts, due for recheck Plantar fa sciitis of left foot 3876451394 4632679 M72.2 reviewed handouts, emphasized importance of gentle stretching and relative rest [id number] Isaac Silva MD Main Office [address] [place] [address] 05/08/2021 14:15:05 05/08/2021 16:00:34 Depressive disorder 18791136 F32.9 chronic, stable overall on meds, prescripti on is updated, she's aware of the down sides to long-term use of clonazepam but at this time the benefits outweigh the risks Coronary arteriosclerosis 88489239 I25.10 no sxs, continue current meds, due for labs Screening for malignant neoplasm of respiratory tract 707478932 Z12.2 patient declines screening Thrombocyt openic disorder 143139202 D69.6 h/o low plts, due for recheck Plantar fa sciitis of left foot 4757565017 9975828 M72.2 resolved [id number] Isaac Silva MD Main Office [address] [place] [address] 04/08/2022 18:46:55 04/09/2022 08:44:01 Fracture of ankle 84260130 S82.92XS patient still has disability related to her past fracture, will refer to PT to work on this and hopefully improve her stability and strength, while awaiting her appointmen t I suggested that she try doing the ABCs with her ankle Coronary arteriosclerosis 81218008 I25.10 patient has been having some episodes of chest pain as described above though I suspect this is more likely related to esophageal spasm from her chronic acid reflux, the patient does need to reestablis h with cardiology so a referral is started, continue current meds, due for labs Depressive disorder 3138 9007 F32.9 chronic, stable overall on meds, prescripti on is updated, she's aware of the down sides to long-term use of clonazepam but at this time the benefits outweigh the risks Insomnia 055220250 G47.0 0 ongoing issue for the patient, she prefers to avoid medication s and I agree with that, we had a good discussion about sleep hygiene and she is going to work on that Pruritic disorder 466199 002 L29.9 face and neck as noted above, exact cause unclear but may simply be eczema, encourage her to look for possible allergies, we discussed use of low potency topical corticoste roids and the reasons to only use this for very short term on the face, she'll focus on moisturize rs and let us know if things are not improving Gastroesop hageal reflux disease without esophagitis 708379416 K21.9 patient notes she has been taking over-the-c ounter Prilosec for a long time and that she may have a hiatal hernia, I suspect this explains her intermitte nt chest pains and occasional gasp for air which may be some diaphragm spasm, recommend she consider prescripti on strength PPI and also work on diet changes to improve symptoms, offered a chest x-ray to evaluate for hiatal hernia or a barium swallow but she reports that she had a barium swallow in the past indicating a hiatal hernia and does not want to do that tests again [id number] Isaac Silva MD Main Office [address] [place] [address] 05/13/2022 13:55:43 05/13/2022 19:24:21 Coronary arteriosclerosis 94486424 I25.10 [id number] Isaac Silva MD Main Office [address] [place] [address] 06/20/2023 11:45:04 06/20/2023 12:43:34 Coronary arteriosclerosis 73887370 I25.10 currently asymptomat ic, continue current meds Depressive disorder 3548 9007 F32.9 chronic, stable overall on meds, prescripti on is updated, she's aware of the down sides to long-term use of clonazepam but at this time the benefits outweigh the risks History of thrombocytopenia 5471618479 9108 Z86.2 due for labs Lumbago with sciatica 20 4626056 M54.41 recent issue, no injury, suspect arthritic changes, check x-rays, try home exercises but encouraged to consider PT Pain of le ft knee joint 9878222171 80393 M25.562 recent issue without known injury, suspect arthritis though pain could be referred from back, check xray Memory impairment 277439 006 R41.3 slowly worsening, may be normal but discussed could be due to custodial clonazepam , check labs for now [id number] Isaac Silva MD Main Office [address] [place] [address] 07/23/2024 16:52:26 07/24/2024 10:36:18 Coronary arteriosclerosis 52350255 I25.10 currently asymptomat ic, continue current meds for now but could try cutting back on statin, check labs Depressive disorder 3548 9007 F32.9 chronic, stable overall on meds, prescripti on is updated, she's aware of the down sides to long-term use of clonazepam but at this time the benefits outweigh the risks...to day, trying to cut back, no change in rx for now History of thrombocytopenia 6225569679 9108 Z86.2 due for labs Loss of hair 947071559 L 65.9 40783 exact cause unclear, could be meds or other causes, check labs and can try cutting back on fluoextine to 40mg daily in the meantime Swallowing painful 17085 002 R13.10 208615 getting more frequent throat pains, that are random, h/o hiatal hernia, will refer to GI for possible EGD Health Concerns Section Related Observation LastModified by Organization Detai ls LastModified Time None Recorded Concern Status LastModified by Organization Details LastModified Time None Recorded Advance Directives Directive N: Payers Insurance Date Sequence Insurance Name Policy Number Policy Garrison Covered Member ID Garrison Member ID Guarantor Name 01/19/2025 1 MEDICARE [place]: [employer] [facility] Viktoria Araujo [id number] Viktoria Araujo 06/09/2023 2 [facility] (MEDICARE SUPPLEMENT) Viktoria Arajuo [id number] Viktoria Araujo 06/09/2023 2 [facility] Viktoria Araujo [id number] Viktoria Araujo 07/20/2024 2 [facility] (MEDICARE SUPPLEMENT) Viktoria Araujo [id number] Viktoria Araujo Notes Date Note Type Note Provider Name and Address Organization Details Recorded Time 05/08/2021 text/html Here for follow up. She notes that she used to get a prescription of 4 tabs per day. Twice a day does not quite work. A few times a year she will be awakened by a feeling in her ears that goes into her chest and lasts about 10 minutes. Has a hiatal hernia but no issues with swallowing. Consent obtained for labs to be drawn and reviewed with pt. Site prepped with alcohol. Venipuncture with 21 x 1.5 needle without incident. 1 attempt W/ blood return successful. Pt. tolerated well. Pressure applied following needle removal. Puncture site covered with cotton and Coban. Pt. educated to remove bandage in 10 minutes and alert us if bleeding has not subsided. Office will send lab results, by pt portal or [facility]PS when results available and have been reviewed by Dr. Silva. Repeat labs and or F/U appts will be recommended, when applicable. Isaac Silva MD [address] [place] [address], [address], [facility] 11/09/2021 21:03:12 04/08/2022 text/html Here for some issues. Broke her ankle in October. Healing but very weak. Hesitant to walk on it. Wondering about trying PT. Angina? For years she will get a pain. Starts in ears, usually at night, into throat and down to chest. Lasts 10 minutes. Takes deep breathes. Occasionally happens during the day. Getting more frequent. Takes prilosec for years. Does has past h/o CAD but has not seen cardiology for years. Occasional sudden gasps, uncontrolled. ?h/o hiatal hernia. Hard to get to sleep most nights. Can be up all night. rat exterminator issue. Tends to just sleep in the next morning. Does not want to take pills to help with sleep. Wonders about Natures Balance supplement. It apparently is supposed to take the place of needing to eat vegetables. We discussed that eating veggies is much better than taking the pills. Itchy face and neck. Deshaun blood last night from scratching. Has had a TCS in the past. She denies any issues with hot flashes at night. She is using topical moisturizer but that her skin seems to get dry. Isaac Silva MD [address] [place], [address], [facility] 04/09/2022 08:43:52 05/13/2022 text/html Consent obtained for labs to be drawn and reviewed with pt. Site prepped with alcohol. Venipuncture with 21 x 1.5 needle without incident. 1 attempt W/ blood return successful. Pt. tolerated well. Pressure applied following needle removal. Puncture site covered with cotton and Coban. Pt. educated to remove bandage in 10 minutes and alert us if bleeding has not subsided. Office will send lab results, by pt portal or USPS when results available and have been reviewed by Dr. Silva. Repeat labs and or F/U appts will be recommended, when applicable. Isaac Silva MD [address] [place], [address], [facility] 05/14/2022 01:15:18 06/20/2023 text/html Here for follow up. Arthritis? Back pain with some pain down the right leg. Lately pain lateral left knee radiates. Thighs have been feeling weaker. Started after her injuries a few years ago. Ankle still gives her trouble at times but manageable. Memory may be getting worse with time. Has been on clonazepam for a while. Mostly issues with forgetting why she went in a room or where she left something. Also due for labs. Taking meds as directed. Consent obtained for labs to be drawn and reviewed with pt. Site prepped with alcohol. Venipuncture with 21 x 1.5 needle without incident. 1 attempt W/ blood return successful. Pt. tolerated well. Pressure applied following needle removal. Puncture site covered with cotton and Coban. Pt. educated to remove bandage in 10 minutes and alert us if bleeding has not subsided. Office will send lab results, by pt portal or USPS when results available and have been reviewed by Dr. Silva. Repeat labs and or F/U appts will be recommended, when applicable. Isaac Silva MD [address] [place], [address], [facility] 06/20/2023 12:43:27 07/23/2024 text/html Here for follow up. Notes her hair is thinning more lately. Thinks her current meds may be a factor. Hair loss is worse over the past year. Wants to cut back on her meds if possible. Has been trying to scale back on her clonazepam. Gets a pain that starts in the ears, then to throat, then down chest and over to one side or the other. Last 10 minutes or so and can be quite debilitating. Getting more frequent lately. Sometimes has things be difficult to swallow. Has known hiatal hernia. Wants to get a scope done to be sure there is no cancer. She had a heart attack many years ago. Was told it was not due to cholesterol at the time. Wonders if she could cut back/stop some/all of the meds. Wants to try. Isaac Silva MD [address] [place], [address], [facility] 07/23/2024 17:48:10 OBGyn Episode No OBEpisode recorded.
--- NOTE | 2025-01-26 11:22 | ED.NEUROSD ---
HPI - Neuro Symptoms/Deficit General Chief Complaint: Neuro Symptoms/Deficit Stated Complaint: Stroke Time Seen by Provider: 01/26/25 11:17 History of Present Illness HPI Narrative: 79 year old female brought in by EMS for concerns of stroke. 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 Stroke code was called upon arrival. Last known well 2 days ago, initial NIHSS 15. BP 150/110, glucose 114, per EMS. Per he left two days ago [place] two days ago. He returned from home today and found patient on the ground. Patient stated she needed to use the restroom and he attempted to place that and underneath her, which is when he realized she was weaker than baseline and called 911. Not on blood thinners. Related Data Home Medications ?Medication ?Instructions ?Recorded ?Confirmed [CLONAZEPAM] Q DAY PRN ##0 07/11/12 omeprazole 20 mg capsule,delayed 20 mg PO QDAY ##0 07/11/12 release aripiprazole 5 mg tablet 5 mg PO Q DAY ##0 06/01/16 escitalopram oxalate 10 mg tablet PO SEE INSTRUCTIONS ##0 06/01/16 (Lexapro) Previous Rx's ?Medication ?Instructions ?Recorded amoxicillin 875 mg-potassium 875 mg (0.88 x 875-125 mg) PO BID 06/03/16 clavulanate 125 mg tablet #6 tabs (Augmentin) diltiazem HCl 120 mg 120 mg PO QDAY #90 caps 06/03/16 capsule,extended release 24 hr (Cartia XT) pravastatin 80 mg tablet 80 mg PO HS #90 tabs 06/03/16 metoprolol succinate 25 mg 25 mg PO QDAY #90 tabs 07/06/16 tablet,extended release 24 hr (Toprol XL) Review of Systems Review of Systems Narrative: See HPI. Exam Narrative Exam Narrative: Vitals: Reviewed. Gen: Well-developed well-nourished Eyes: Equal round and reactive, no gaze deviation Card: Regular rate, no murmurs, rubs, gallops. Pulm: Clear to auscultation bilaterally Abd: Soft nondistended nontender to palpation MSK: No peripheral edema in bilateral lower extremity. Neuro: A&O x 3, Not moving left upper and left lower extremity, spontaneous movement in the right upper and right lower extremity. Psych: Appropriate Initial Vital Signs Initial Vital Signs: Vital Signs Pulse Rate 104 H 01/26/25 11:17 Respiratory Rate 26 H 01/26/25 11:17 Blood Pressure 122/75 01/26/25 11:17 Pulse Oximetry 97 01/26/25 11:17 Oxygen Delivery Method Room Air 01/26/25 11:17 Scores NIH Stroke Scale Citation:: 1A level of consciousness - alert, keenly responsive 1B month and age - both questions right 1C blink eyes and squeeze hands - blinks both eyes, performs task with right upper extremity 2 horizontal extraocular movements -normal without gaze palsy 3 visual card - partial hemianopia 4 facial palsy - unilateral complete paralysis of the lower face 5A left arm motor drift - no movement 5B right arm motor drift -no drift for 10 seconds 6A left leg motor drift - no effort against gravity 6B right leg motor drift - no drift for 5 seconds 7 limb ataxia - paralyzed in right upper extremity, weakness in left lower 8 sensation - mild to moderate loss consents being touched 9 language/aphasia - normal; no aphasia 10 dysarthria -ytkd-ay-fknyvnjt dysarthria swearing but can be understood 11 extinction/inattention - no abnormalities NIH = 13 Course Course Course Narrative: [address] Dr[address] CT head with intracerebral hemorrhage and 1.1 cm midline shift to the left. 1[address] [facility] with physician on transfer line 1145 Discussed findings with the patient and at bedside, need for transfer to [facility] [address] [facility] neurosurgeon who is aware that whether constraints as preventing [facility], recommend urgent transfer, even by ground if needed 1211 [facility] will transfer patient Orders Ordered: ED Orders 01/26/25 11:[address] angio head and neck Stat XR chest 1V Stat Complete Blood Count AUTO DIFF Stat Comprehensive Metabolic Panel Stat PTT Partial Thromboplastin [place] Stat Prothrombin Time INR Stat Troponin & CK Cardiac Panel Stat Urine Drug Screen, Rapid Stat EKG-12 Lead Stat Ondansetron HCl (Ondansetron 4 Mg/2 Ml Inj) 4 mg IV NOW PRN PRN Reason: Nausea And Vomiting Ondansetron HCl (Ondansetron 4 Mg Odt) 4 mg PO NOW PRN PRN Reason: Nausea And Vomiting Vital Signs Vital signs: Vital Signs - 8 hr 01/26/25 11:17 01/26/25 11:30 01/26/25 11:34 Pulse Rate 104 H 104 H Respiratory Rate 26 H 28 H Blood Pressure 122/75 122/75 Pulse Oximetry 97 Oxygen Delivery Method Room Air 01/26/25 11:34 01/26/25 11:41 01/26/25 11:41 Pulse Rate 103 H 99 H Respiratory Rate 28 H 27 H Blood Pressure 142/69 H Pulse Oximetry 96 96 Oxygen Delivery Method 01/26/25 11:45 01/26/25 11:45 01/26/25 11:50 Pulse Rate 99 H Respiratory Rate 29 H Blood Pressure 128/75 129/68 Pulse Oximetry 97 Oxygen Delivery Method 01/26/25 11:50 Pulse Rate 97 H Respiratory Rate 27 H Blood Pressure Pulse Oximetry 95 Oxygen Delivery Method MDM - Neuro Symptoms/Deficit Lab Data 01/26/25 11:25 01/26/25 11:25 Labs: Lab Results 01/26/25 Range/Units 11:25 Sodium 126 L (137-145) mmol/L Potassium 4.0 (3.4-5.1) mmol/L Chloride 95 L (98-107) mmol/L Carbon Dioxide 23 (22-32) mmol/L BUN 22 H (7-17) mg/dL Creatinine 0.67 (0.52-1.04) mg/dL Estimated GFR > 60 (>60) mL/min BUN/Creatinine Ratio 32.8 H (6-22) Glucose 121 H (70-99) mg/dL Calcium 9.1 (8.4-10.2) mg/dL Total Bilirubin 0.9 (0.2-1.3) mg/dL AST 104 H (14-36) IU/L ALT 35 H (<35) IU/L Alkaline Phosphatase 61 (38-126) U/L Total Creatine Kinase 2254 H (30-135) U/L Troponin I 0.188 H* (0.01-0.034) ng/mL Total Protein 6.6 (6.3-8.2) g/dL Albumin 3.8 (3.5-5.0) g/dL Globulin 2.8 (1.7-4.1) g/dL Albumin/Globulin Ratio 1.4 (1.0-2.8) Imaging Data CT scan - head: Radiologist's Impression: PROCEDURE: CT ANGIO HEAD AND NECK INDICATIONS: r/o stroke, L droop, L flaccid TECHNIQUE: After the administration of intravenous contrast, 1 mm thick sections acquired from the aortic arch through the [place] of [place]. 3-dimensional tlvlyqh-pdagjwooc-tnicgtpiua (MIP) and/or volume rendering reformats were acquired of the central intracranial vasculature and neck separately. For radiation dose reduction, the following was used: automated exposure control, adjustment of mA and/or kV according to patient size. COMPARISON: [facility], CT, CT STROKE, 01/26/2025, 11:14. FINDINGS: Image quality: Diagnostic. Cerebral CT Angiogram: Internal carotid arteries: No acute findings. Intracranial ICA are patent with no significant stenosis. No occlusion. No aneurysm. Anterior cerebral arteries: Unremarkable. No significant stenosis. No occlusion. No aneurysm. Middle cerebral arteries: Unremarkable. No significant stenosis. No occlusion. No aneurysm. Posterior cerebral arteries: Unremarkable. No significant stenosis. No occlusion. No aneurysm. Basilar artery: Unremarkable. No significant stenosis. No occlusion. No aneurysm. Vertebral arteries: Unremarkable as visualized. Dural venous sinuses: Unremarkable given phase of enhancement. Other: Large right cerebral intraparenchymal hematoma is again seen unchanged from earlier CT study. Neck CT Angiogram: Internal carotid arteries: Unremarkable. No significant stenosis. No dissection or occlusion. Common carotid arteries: Unremarkable. No significant stenosis. No dissection or occlusion. External carotid arteries: Unremarkable. No occlusion. Vertebral arteries: Unremarkable. No significant stenosis. No dissection or occlusion. Aortic Arch and Mediastinum: Partially visualized aortic arch unremarkable without evidence of aneurysm. Origins of the great vessels unremarkable. Other: Arterial phase soft tissues of the neck and chest are unremarkable. IMPRESSION: 1. No significant intracranial arterial abnormality is seen. 2. No significant abnormality is seen within the arteries of the neck. 3. Stable appearance of large acute right cerebral intraparenchymal hematoma with surrounding vasogenic edema. Any quantitative measurements of stenosis were performed using NASCET criteria. ECG Data Interpretation: 1133 sinus rhythm with premature atrial complexes, HR 100, MT 154, QRS 70, QTC 448, no axis deviation, no ectopy, poor R-wave progression, no evidence of ischemia. MDM Narrative Medical decision making narrative: Patient is a 79-year-old female with a history of CO and prior CVA brought in by EMS as a code stroke. Differential diagnosis: Ischemic versus hemorrhagic stroke, hypertension, subarachnoid hemorrhage, less likely hypoglycemia. Plan: Labs, imaging, ekg Imaging: -- CT with acute right cerebral intraparenchymal hematoma -- CXR: Enlarged heart, otherwise lungs appear inflated, no pleural effusion, no pneumothorax. Plan: -- Discussed diagnosis with and patient at bedside -- Transfer to [facility] for higher level of care Discharge Plan Departure Patient Disposition: [facility] Clinical Impression: Intraparenchymal hematoma of brain Prescriptions: No Action omeprazole 20 MG capsule,delayed release(DR/EC) 20 mg PO QDAY Qty: 0 [CLONAZEPAM] Q DAY PRN Qty: 0 escitalopram oxalate [Lexapro] 10 MG tablet PO SEE INSTRUCTIONS Qty: 0 aripiprazole 5 MG tablet 5 mg PO Q DAY Qty: 0 pravastatin 80 MG tablet 80 mg PO HS Qty: 90 1RF diltiazem HCl [Cartia XT] 120 MG capsule,extended release 24hr 120 mg PO QDAY Qty: 90 1RF amoxicillin-pot clavulanate [Augmentin] 875 MG/125 MG tablet 875 mg PO BID Qty: 6 0RF metoprolol succinate [Toprol XL] 25 MG tablet extended release 24 hr 25 mg PO QDAY Qty: 90 3RF Referrals: Isaac Silva MD [Primary Care Provider, Family Practice]
--- NOTE | 2025-01-26 11:33 | EKG_ITS ---
[address] [address] [address] Test Date: 2025-01-26 Pat Name: Viktoria Araujo Department: Room: Gender: Female [employer]: SAVANNAH : 1945 Requested By: Order Number: [id number] Reading MD: Ulises Leal MD Measurements Intervals [place] Rate: 100 P: 65 NC: 154 QRS: 62 QRSD: 70 T: 49 QT: 348 QTc: 448 Interpretive Statements Sinus rhythm with premature atrial complexes Electronically Signed On 01-27-2025 9:19:03 PST by Ulises Leal MD
[2025-01-26 11:48] LABS: Alanine Aminotransferase 35 IU/L (<35); Albumin 3.8 g/dL (3.5-5.0); Albumin Globulin Ratio 1.4 (1.0-2.8); Alkaline Phosphatase 61 U/L (38-126); Blood Urea Nitrogen 22 mg/dL (7-17); Calcium 9.1 mg/dL (8.4-10.2); Carbon Dioxide 23 mmol/L (22-32); Chloride 95 mmol/L (98-107); Estimated Glomerular Filt Rate > 60 mL/min (>60); Globulin 2.8 g/dL (1.7-4.1); Glucose 121 mg/dL (70-99); Potassium 4.0 mmol/L (3.4-5.1); Sodium 126 mmol/L (137-145); Total Protein 6.6 g/dL (6.3-8.2)
[2025-01-26 11:54] LABS: Creatine Kinase 2254 U/L (30-135); HEMOLYSIS 44 (0-50)
[2025-01-26 12:02] LABS: Troponin I 0.188 ng/mL (0.01-0.034)
[2025-01-26 12:14] LABS: Hematocrit 41.2 % (36-46); Hemoglobin 14.1 g/dL (12.0-16.0); Mean Corpuscular HGB Conc 34.2 % (30-36); Mean Corpuscular Hemoglobin 32.2 PG (26-34); Mean Corpuscular Volume 94.1 fL (80-100); Platelet Count 233 X10^3/uL (150-400)
[2025-01-26 12:19] LABS: INR 1.0 (0.9-1.3); Prothrombin Time 11.3 SECONDS (9.4-12.5)
[2025-01-26 12:22] LABS: PTT Partial Thromboplastin Tim 26 SECONDS (25.1-36.5)
[2025-01-26 13:29] LABS: Add Manual Diff / Slide Review YES
[2025-01-26 13:50] LABS: Lymphocytes Percent Manual 2.0 % (25-45); Monocytes Percent Manual 8.0 % (2-11); Neutrophils Absolute Manual 15210 /uL (3000-5900); Segmented Neutrophils Percent 90.0 % (38-70); Total Cells Counted 100
[2025-01-26 13:52] LABS: Anisocytosis 1+
== END 2025-01-26 12:35 | disposition short-term general hospital (02) ==
PROVIDERS: Emergency Provider Student in an Organized Health Care Education/Training Program; PCP Family Medicine
DX: I61.8 Other nontraumatic intracerebral hemorrhage (principal); R29.713 NIHSS score 13; G81.94 Hemiplegia, unspecified affecting left nondominant side
CPT/HCPCS: 70450; 70496; 70498; 71045; 80053; 82550; 82962; 84484; 85007; 85025; 85610; 85730; 93005; 93010; 99284; Q9967